=== PATIENT | male | born 1965 | race Caucasian/White ===

== ENCOUNTER 2019-01-03 14:17 | Observation (INO) ==
[2019-01-03] MEDS ORDERED: Isovue-370 500 ML BOTTLE IVP ONE (14:56)
--- NOTE | 2019-01-03 15:46 | Emergency Department Note ---
Disposition Clinical Impression: Cellulitis of neck Disposition: Admitted As Inpatient Condition: Fair Referrals: Sherrell Ragland CNP [Primary Care Provider] - Forms: ED Satisfaction Letter, Work/School Release Time of Disposition: 19:58 General Adult HPI - General Chief complaint: ED General Medical Stated complaint: Left side neck / throat swelling Time Seen by Provider: 01/03/19 14:42 Source: patient Limitations: no limitations Nursing Notes Reviewed: Yes Vital Signs Reviewed: Yes - History of Present Illness Pain Scale: 6 - Related Data Home Medications Medication Instructions Recorded Confirmed Albuterol Sulfate [Ventolin Hfa] 18 gm IH DAILY 01/03/19 01/03/19 Atorvastatin [Lipitor] 20 mg PO HS 01/03/19 01/03/19 DULoxetine [Cymbalta] 30 mg PO DAILY 01/03/19 01/03/19 Fluticasone Propionate [Flovent 12 gm IH DAILY 01/03/19 01/03/19 Hfa] Furosemide [Lasix] 40 mg PO DAILY 01/03/19 01/03/19 Levocetirizine Dihydrochloride 5 mg PO DAILY 01/03/19 01/03/19 [Allergy Relief (Xyzal)] Losartan Potassium [Cozaar] 100 mg PO DAILY 01/03/19 01/03/19 Metoprolol Tartrate 50 mg PO 1-2XD PRN 01/03/19 01/03/19 Naproxen [Naprosyn] 500 mg PO 1-2XD PRN 01/03/19 01/03/19 Sertraline [Zoloft] 50 mg PO DAILY 01/03/19 01/03/19 Tamsulosin HCl [Flomax] 0.4 mg PO DAILY 01/03/19 01/03/19 Tiotropium [Spiriva] 18 mcg IH DAILY 01/03/19 01/03/19 Tramadol HCl [Ultram] 50 mg PO QID PRN 01/03/19 01/03/19 Allergies Allergy/AdvReac Type Severity Reaction Status Date / Time No Known Allergies Allergy Verified 01/03/19 14:36 Past Medical History - Past Medical History Medical history: Reports: hyperlipidemia, hypertension, thyroid disease Psychiatric history: Reports: no psych history - Social History Smoking Status: Current every day smoker Smokeless Tobacco Status: No Alcohol use: Reports: none Drug use: Reports: none Physical Exam - General Limitations: no limitations General appearance: alert Course Vital Signs Temperature 97.7 F 01/03/19 14:24 Pulse Rate 87 01/03/19 14:24 Respiratory Rate 18 01/03/19 14:24 Blood Pressure 203/146 01/03/19 14:24 O2 Sat by Pulse Oximetry 96 01/03/19 14:24 Temperature 98.6 F 01/03/19 18:59 Pulse Rate 87 01/03/19 18:59 Respiratory Rate 18 01/03/19 18:59 Blood Pressure 186/127 01/03/19 18:59 O2 Sat by Pulse Oximetry 95 01/03/19 18:59 Oxygen Delivery Oxygen Delivery Room Air Medical Decision Making - Lab Data Result diagrams: 01/03/19 15:30 01/03/19 15:30 Lab Results 01/03/19 01/03/19 Range/Units 15:30 15:30 WBC 12.7 H (4.3-11.1) K/mcL RBC 4.92 (4.19-5.50) M/mcL Hgb 16.0 (12.9-16.9) g/dL Hct 45.7 (37.5-50.1) % MCV 92.9 (83.0-100.0) fL MCH 32.5 (28.0-33.3) pg MCHC 35.0 (31.6-35.5) g/dL RDW 13.1 (11.5-14.5) % Plt Count 246 (140-400) K/mcL MPV 10.7 (9.4-12.4) fL Immature Gran % 0.3 (0-4) % Seg Neutrophils % 59.1 % Lymphocytes % 32.6 % Monocytes % 6.0 % Eosinophils % 1.5 % Basophils % 0.5 % Neutrophils # 7.5 (1.6-8.9) K/mcL Lymphocytes # 4.1 (0.6-4.6) K/mcL Monocytes # 0.8 (0.0-1.3) K/mcL Eosinophils # 0.2 (0.0-0.6) K/mcL Basophils # 0.1 (0.0-0.2) K/mcL Sodium 139 (136-145) mEq/L Potassium 3.6 (3.5-5.1) mEq/L Chloride 107 (98-107) mEq/L Carbon Dioxide 26 (23-29) mEq/L BUN 12 (6-20) mg/dL Creatinine 0.90 (0.70-1.30) mg/dL Est GFR ( Amer) > 60 (> 60) Est GFR (Non-Af Amer) > 60 (> 60) BUN/Creatinine Ratio 13 (6-26) Glucose 97 (70-105) mg/dL Calculated Osmolality 288 (280-300) Calcium 8.9 (8.6-10.3) mg/dL Attestation Statement - Attestation Attestation: I examined this patient and my medical decision-making was reviewed with the Resident Physician. I agree with the documented findings, disposition and treatment plan as described except to the extent set forth below. Patient presents to the ED with his . He is a chief complaint of a 2 day history of swelling to the left side of the neck. Started after drinking some Powerade. Swells when he eats and goes down after he eats. Nonpainful. No fever. No vomiting. No chest pain. Denies injury. On examination he has some tenderness to the left submandibular area. Swelling noted. Plan. CT neck. CT reviewed. No abscess. No airway compromise. Starting IV antibiotic and admitting. Soft Tissue Neck CT 01/03/19 14:56 IMPRESSION: Left facial cellulitis. No abscess identified. D/ / Jony Davalos / Jony Davalos Interpreting Provider: Jony Davalos
--- NOTE | 2019-01-03 15:55 | Emergency Department Note ---
Disposition Clinical Impression: Cellulitis of neck Disposition: Admitted As Inpatient Condition: Fair Time of Disposition: 20:15 Neck Injury/Pain HPI - General Chief Complaint: ED General Medical Stated Complaint: Left side neck / throat swelling Time Seen by Provider: 01/03/19 14:42 Source: patient, family Mode of arrival: ambulatory Limitations: no limitations Nursing Notes Reviewed: Yes Vital Signs Reviewed: Yes - History of Present Illness HPI Narrative: 53-year-old male complaining of left-sided neck and face pain and swelling. Says it began approximately 3-4 days ago continually get worse. He says it will come and go with the swelling as well as the pain. Says it is worse whenever he eats and sure thereafter and then as time goes by the swelling decrease in the pain gets better. He has had no fevers or chills. He is had no difficulty in breathing. He has had his right side of his thyroid removed does take calcium but does not have to take Synthroid. Left-sided thyroid has been functioning well. Right side was removed due to possible worry about cancer it was negative for any cancerous cells. This is been done a few years ago there is been no problems since then. Otherwise patient has no other complaints. - Related Data Home Medications Medication Instructions Recorded Confirmed Albuterol Sulfate [Ventolin Hfa] 18 gm IH DAILY 01/03/19 01/03/19 Atorvastatin [Lipitor] 20 mg PO HS 01/03/19 01/03/19 DULoxetine [Cymbalta] 30 mg PO DAILY 01/03/19 01/03/19 Fluticasone Propionate [Flovent 12 gm IH DAILY 01/03/19 01/03/19 Hfa] Furosemide [Lasix] 40 mg PO DAILY 01/03/19 01/03/19 Levocetirizine Dihydrochloride 5 mg PO DAILY 01/03/19 01/03/19 [Allergy Relief (Xyzal)] Losartan Potassium [Cozaar] 100 mg PO DAILY 01/03/19 01/03/19 Metoprolol Tartrate 50 mg PO 1-2XD PRN 01/03/19 01/03/19 Naproxen [Naprosyn] 500 mg PO 1-2XD PRN 01/03/19 01/03/19 Sertraline [Zoloft] 50 mg PO DAILY 01/03/19 01/03/19 Tamsulosin HCl [Flomax] 0.4 mg PO DAILY 01/03/19 01/03/19 Tiotropium [Spiriva] 18 mcg IH DAILY 01/03/19 01/03/19 Tramadol HCl [Ultram] 50 mg PO QID PRN 01/03/19 01/03/19 Allergies Allergy/AdvReac Type Severity Reaction Status Date / Time No Known Allergies Allergy Verified 01/03/19 14:36 All systems ED: reviewed and negative except as stated. Review of Systems: As Per HPI Past Medical History - Past Medical History Attestation: Yes The following information was validated with the patient. Source: patient Medical history: Reports: hyperlipidemia, hypertension, thyroid disease Psychiatric history: Reports: no psych history - Social History Smoking Status: Current every day smoker Smokeless Tobacco Status: No Alcohol use: Reports: none Drug use: Reports: none Physical Exam - General Limitations: no limitations General appearance: alert - Head Head exam: atraumatic, normocephalic, normal inspection - Eye Eye exam: Present: normal appearance, PERRL, EOMI - ENT ENT exam: normal exam, normal oropharynx, mucous membranes moist, other (Left side of the neck is slightly swollen when you look at there is no erythema no noticeable fluctuance or abscesses are seen. The salivary gland on the left cheek from the parotid gland is still producing saliva. There is no noticeable pus or purulence coming out of it. He is tender to touch just below the mandible in the submandibular lymph node and gland region.) - Expanded ENT Exam Throat exam: Present: normal inspection. Absent: R peritonsillar mass, L peritonsillar mass - Neck Neck exam: Present: normal inspection, full ROM, trachea midline - Chest Chest inspection: Present: normal inspection, symmetric chest wall rise - Respiratory Respiratory exam: Present: normal lung sounds bilaterally - Cardiovascular Cardiovascular exam: Present: regular rate, normal rhythm, normal heart sounds - Abdominal Exam Abdominal exam: Present: soft, Non-Tender, normal bowel sounds. Absent: tenderness, distention, guarding, rebound, rigidity Course Course Narrative: We will get CT of the neck soft tissue with contrast to rule out any signs of infection or possible enlarged lymph nodes or other pathology. Patient cared this plan. Vital Signs Temperature 97.7 F 01/03/19 14:24 Pulse Rate 87 01/03/19 14:24 Respiratory Rate 18 01/03/19 14:24 Blood Pressure 203/146 01/03/19 14:24 O2 Sat by Pulse Oximetry 96 01/03/19 14:24 Temperature 98.6 F 01/03/19 18:59 Pulse Rate 87 01/03/19 18:59 Respiratory Rate 18 01/03/19 18:59 Blood Pressure 186/127 01/03/19 18:59 O2 Sat by Pulse Oximetry 95 01/03/19 18:59 Oxygen Delivery Oxygen Delivery Room Air Neck Pain - MDM Narrative Medical decision making narrative: 53 old male with left-sided neck and face swelling. CT showed facial cellulitis. There is no signs of Jb angina no signs of peritonsillar abscess or retropharyngeal abscess. Patient had an open. Being airway there is no respiratory distress. Patient did have elevated white blood cell count with a left shift due to this I felt patient needed to be admitted with starting of an he biotics IV. I did start him on clindamycin. I spoke with the hospitals Dr. Saunders who agreed to admit the patient to their service. Patient is admitted in stable condition. Soft Tissue Neck CT 01/03/19 14:56 IMPRESSION: Left facial cellulitis. No abscess identified. D/ / Jony Davalos / Jony Davalos Interpreting Provider: Jony Davalos - Lab Data Result diagrams: 01/03/19 15:30 01/03/19 15:30 Lab Results 01/03/19 01/03/19 Range/Units 15:30 15:30 WBC 12.7 H (4.3-11.1) K/mcL RBC 4.92 (4.19-5.50) M/mcL Hgb 16.0 (12.9-16.9) g/dL Hct 45.7 (37.5-50.1) % MCV 92.9 (83.0-100.0) fL MCH 32.5 (28.0-33.3) pg MCHC 35.0 (31.6-35.5) g/dL RDW 13.1 (11.5-14.5) % Plt Count 246 (140-400) K/mcL MPV 10.7 (9.4-12.4) fL Immature Gran % 0.3 (0-4) % Seg Neutrophils % 59.1 % Lymphocytes % 32.6 % Monocytes % 6.0 % Eosinophils % 1.5 % Basophils % 0.5 % Neutrophils # 7.5 (1.6-8.9) K/mcL Lymphocytes # 4.1 (0.6-4.6) K/mcL Monocytes # 0.8 (0.0-1.3) K/mcL Eosinophils # 0.2 (0.0-0.6) K/mcL Basophils # 0.1 (0.0-0.2) K/mcL Sodium 139 (136-145) mEq/L Potassium 3.6 (3.5-5.1) mEq/L Chloride 107 (98-107) mEq/L Carbon Dioxide 26 (23-29) mEq/L BUN 12 (6-20) mg/dL Creatinine 0.90 (0.70-1.30) mg/dL Est GFR ( Amer) > 60 (> 60) Est GFR (Non-Af Amer) > 60 (> 60) BUN/Creatinine Ratio 13 (6-26) Glucose 97 (70-105) mg/dL Calculated Osmolality 288 (280-300) Calcium 8.9 (8.6-10.3) mg/dL
[2019-01-03 16:09] LABS: BUN/Creatinine Ratio 13 (6-26); Blood Urea Nitrogen 12 mg/dL (6-20); Calcium 8.9 mg/dL (8.6-10.3); Carbon Dioxide 26 mEq/L (23-29); Chloride 107 mEq/L (98-107); Glucose 97 mg/dL (70-105); Osmolality,Calculated 288 (280-300); Potassium 3.6 mEq/L (3.5-5.1); Sodium 139 mEq/L (136-145); eGFR For Non-African Americans > 60 (> 60)
[2019-01-03] MEDS ORDERED: *HR* LORazepam 2 MG/ML VIAL IVP ONE (16:20)
[2019-01-03] MEDS ORDERED: Clindamycin 600 MG/50 ML 600 MG/50 ML IV.SOLN IVPB STA (18:09)
[2019-01-03 18:29] LABS: Basophils # 0.1 K/mcL (0.0-0.2); Basophils % 0.5 %; Eosinophils # 0.2 K/mcL (0.0-0.6); Eosinophils % 1.5 %; Hematocrit 45.7 % (37.5-50.1); Immature Granulocytes % 0.3 % (0-4); Lymphocytes # 4.1 K/mcL (0.6-4.6); Lymphocytes % 32.6 %; Mean Corpuscular Hemoglobin 32.5 pg (28.0-33.3); Mean Corpuscular Volume 92.9 fL (83.0-100.0); Mean Platelet Volume 10.7 fL (9.4-12.4); Monocytes # 0.8 K/mcL (0.0-1.3); Neutrophils # 7.5 K/mcL (1.6-8.9); Platelet Count 246 K/mcL (140-400); Red Blood Count 4.92 M/mcL (4.19-5.50); Red Cell Distribution Width 13.1 % (11.5-14.5); Segmented Neutrophils % 59.1 %
[2019-01-03] MEDS ORDERED: Naloxone 0.4 MG/ML INJ IVP PRN (22:02)
[2019-01-03] MEDS ORDERED: Acetaminophen 325 MG TABLET PO PRN (22:02)
--- NOTE | 2019-01-03 22:09 | Internal Med History&Physical ---
Date of Encounter: 01/03/19 Time of Encounter: 20:46 Internal Medicine - H&P: HPI Chief complaint: Left face cellulitis Admitted From: Emergency Dept Plans for Post Hospital Care: Home History of present illness: Mr. Jones is a 53 year old male Patient presented to the emergency room with 3-4 day history of facial pain and swelling on the left side. He says that when it first started it swelled to the size of an egg, but then improved. The pain gradually came back and he started having some pain with eating and drinking. He has not had any difficulty breathing and denied fevers and chills. He does have a history of right-sided thyroid removal. He had a similar swelling episode a few months ago but it went away on its own. In the emergency room patient's: Temperature 97.7, pulse 87, respiratory 18 blood pressure 203/146 O2 saturation 96% on room air. CBC revealed a white count of 12.7, but otherwise within normal limits BMP had no abnormalities. A soft tissue neck with contrast was performed that showed left facial cellulitis, no abscess identified. The pharynx and larynx had normal appearance, no masses or abscesses seen. Blood cultures were not drawn prior to the initiation of antibiotics. He was given clindamycin and admitted to the hospital floor for further observation. Upon my evaluation, patient is resting comfortably in the hospital bed in no acute distress. He denies chest pain, abdominal pain, diarrhea and constipation. He has had some nausea but denies vomiting. He denies shortness of breath and difficulty breathing. He is currently not having any pain with swallowing. He denies significant family history. He is a full code. Past Med Surg Social Fam HX - Past Medical History Medical history: hyperlipidemia, hypertension, thyroid disease Psychiatric history: no psych history - Social History Smoking Status: Current every day smoker Smokeless Tobacco Status: No Alcohol use: none Drug use: none Internal Medicine - H&P: Meds Albuterol Sulfate [Ventolin Hfa] 18 gm IH DAILY 01/03/19 [History] Atorvastatin [Lipitor] 20 mg PO HS 01/03/19 [History] DULoxetine [Cymbalta] 30 mg PO DAILY 01/03/19 [History] Fluticasone Propionate [Flovent Hfa] 12 gm IH DAILY 01/03/19 [History] Furosemide [Lasix] 40 mg PO DAILY 01/03/19 [History] Levocetirizine Dihydrochloride [Allergy Relief (Xyzal)] 5 mg PO DAILY 01/03/19 [History] Losartan Potassium [Cozaar] 100 mg PO DAILY 01/03/19 [History] Metoprolol Tartrate 50 mg PO 1-2XD PRN 01/03/19 [History] Naproxen [Naprosyn] 500 mg PO 1-2XD PRN 01/03/19 [History] Sertraline [Zoloft] 50 mg PO DAILY 01/03/19 [History] Tamsulosin HCl [Flomax] 0.4 mg PO DAILY 01/03/19 [History] Tiotropium [Spiriva] 18 mcg IH DAILY 01/03/19 [History] Tramadol HCl [Ultram] 50 mg PO QID PRN 01/03/19 [History] Allergy/AdvReac Type Severity Reaction Status Date / Time No Known Allergies Allergy Verified 01/03/19 14:36 All Systems PM: A 10-system review of systems was performed and is negative for pertinent findings except as documented above in the HPI. - Constitutional Vitals: Temp Pulse Resp BP Pulse Ox 97.8 F 97 16 151/104 95 01/03/19 21:54 01/03/19 21:54 01/03/19 21:54 01/03/19 21:54 01/03/19 21:54 General appearance: Present: cooperative, A&O X 3, pleasant, no acute distress, answers questions appropriately Exam: - - Head Head exam: Present: normal inspection - Eye Eye exam: Present: EOMI, normal appearance - Respiratory Respiratory exam: Present: CTAB. Absent: rales, respiratory distress, rhonchi, stridor, wheezes - Cardiovascular Cardiovascular exam: Present: RRR. Absent: diastolic murmur, systolic murmur - GI/Abdominal GI/Abdominal exam: Present: normal bowel sounds, soft. Absent: tenderness - Extremities Exam Extremities exam: Present: warm, radial pulses palpable and symmetrical. Absent: calf tenderness, pedal edema, tenderness - Neurological Exam Neurological exam: Present: no focal deficits, strengths equal and symetr throughout. Absent: motor sensory deficit, facial droop, speech deficit - Skin Skin exam: Present: dry, normal color, warm Additional comments: Slight redness to the left neck and jawline, with irritation likely secondary to shaving. Nontender to palpation, no palpable masses felt. No vesicular lesions indicating shingles. Internal Med - H&P Results - Labs CBC & Chem 7: 01/03/19 15:30 01/03/19 15:30 Labs: Short CBC 01/03/19 Range/Units 15:30 WBC 12.7 H (4.3-11.1) K/mcL Hgb 16.0 (12.9-16.9) g/dL Hct 45.7 (37.5-50.1) % Plt Count 246 (140-400) K/mcL Neutrophils # 7.5 (1.6-8.9) K/mcL BMP 01/03/19 15:30 Sodium 139 Potassium 3.6 Chloride 107 Carbon Dioxide 26 BUN 12 Creatinine 0.90 Glucose 97 Calcium 8.9 - Impressions ITS Impressions Soft Tissue Neck CT 01/03/19 14:56 IMPRESSION: Left facial cellulitis. No abscess identified. D/ / Jony Davalos / Jony Davalos Interpreting Provider: Jony Davalos - Assessment and Plan (1) Cellulitis of neck Current Visit: Yes Status: Acute Assessment and plan: Patient has slight redness to the left side of the neck. Not tender to palpat ion, no palpable masses felt on exam. Does appear to be related to shaving as the skin looked like it was irritated. CT of the head and neck showed cellulitis with no abscess. He was started on clindamycin in the emergency room. Continue clindamycin Monitor for worsening signs of infection Bedside pulse oximeter Oxygen supplementation as needed Monitor for signs of difficulty swallowing or breathing ENT consult if concern for airway compromise occurs. (2) Hypertensive urgency Current Visit: Yes Status: Acute Assessment and plan: Patient's initial blood pressure in the emergency room was significantly elevated. I requested the ER give the patient 10 mg IV hydralazine and it seems to have improved to 151/104. He does take blood pressure medicines at home, and recently had a blood pressure medicine changes by his primary care doctor. Continue IV hydralazine 10 mg every 6 hours as needed Continue home blood pressure medications (3) DVT prophylaxis Current Visit: Yes Status: Acute Assessment and plan: Subcutaneous heparin - Time Spent With Patient Total time spent is greater than 50% in coordination of care (as documented) at patient's floor/unit and/or counseling patient: Greater than 35 minutes
[2019-01-03] MEDS: *HR* OxyCODONE Immed Rel 5 MG TABLET PO PRN (22:24)
[2019-01-04] MEDS: Clindamycin 600 MG/50 ML 600 MG/50 ML IV.SOLN IVPB SCH ×3 (03:09→19:08)
[2019-01-04] MEDS: *HR* Heparin 5,000 UNIT/ML VIAL SQ SCH ×2 (04:29→19:08)
[2019-01-04] MEDS: *HR* OxyCODONE Immed Rel 5 MG TABLET PO PRN ×2 (04:30→19:46)
[2019-01-04 04:45] LABS: Hematocrit 43.8 % (37.5-50.1); Hemoglobin 14.5 g/dL (12.9-16.9); Mean Corpuscular HGB Conc 33.1 g/dL (31.6-35.5); Mean Corpuscular Hemoglobin 31.1 pg (28.0-33.3); Mean Platelet Volume 10.2 fL (9.4-12.4); Platelet Count 217 K/mcL (140-400); Red Blood Count 4.66 M/mcL (4.19-5.50); Red Cell Distribution Width 13.2 % (11.5-14.5)
[2019-01-04 05:03] LABS: BUN/Creatinine Ratio 15 (6-26); Blood Urea Nitrogen 17 mg/dL (6-20); Carbon Dioxide 25 mEq/L (23-29); Chloride 105 mEq/L (98-107); Glucose 143 mg/dL (70-105); Osmolality,Calculated 286 (280-300); Potassium 3.5 mEq/L (3.5-5.1); Sodium 136 mEq/L (136-145); eGFR For Non-African Americans > 60 (> 60)
[2019-01-04] MEDS: Furosemide 40 MG TABLET PO SCH (08:00)
[2019-01-04] MEDS ORDERED: Ondansetron 4 MG/2 ML VIAL IVP PRN (10:27)
[2019-01-04] MEDS: *HR* HYDROcodone/Acet 5/325 mg TABLET PO PRN (12:23)
--- NOTE | 2019-01-04 12:45 | Internal Med Progress Note ---
Hospitalist Progress Note - Encounter Date of Encounter: 01/04/19 Time of Encounter: 09:15 - Subjective Interval History: Patient feels much better today. His swelling and pain in the left lower face and neck has improved. Patient states that she developed swelling and pain in this region which got worse every time he ate something. However since he was admitted overnight, his symptoms have improved now and is tolerating oral diet without any pain today. Denies any trouble swallowing food. No fever reported this morning. - Exam Vitals: Temp Pulse Resp BP Pulse Ox 97.9 F 83 17 163/111 94 01/04/19 11:00 01/04/19 11:00 01/04/19 11:00 01/04/19 11:00 01/04/19 11:00 Exam: General: Patient is alert, no acute distress, oriented x 3 ENT: Mucous membranes moist; no erythema noted on face today. Mildly tender to deep palpation in the lower submandibular region. Respiratory: Good respiratory effort. Normal breath sounds. No wheezing or crackles. Cardiovascular: Regular rate and rhythm. s1 and s2 normal No clicks, rubs, gallops, or murmurs. No pedal edema Abdomen: Abdomen is soft, nontender. Bowel sounds are present Musculoskeletal: Spontaneously moving all extremities Skin: warm, dry, intact. Neuro: Alert oriented x 3 normal cranial nerves, no focal deficits - Assessment and Plan (1) Sialadenitis Current Visit: Yes Status: Acute (2) Cellulitis of neck Current Visit: Yes Status: Ruled-out (3) Hypertensive urgency Current Visit: Yes Status: Acute (4) DVT prophylaxis Current Visit: Yes Status: Acute - Summary of Assessment and Plan Summary of Assessment and Plan: I strongly suspect that the patient either had sialadenitis or salivary ductal stone which caused his symptoms. It seems to be improving already and patient is tolerating diet without any pain. Will continue clindamycin. His blood pressure remains elevated but better controlled compared to yesterday. We will resume metoprolol [address] him on a scheduled dose twice daily. Continue to monitor blood pressure. Patient does have consistent leukocytosis. Will recheck tomorrow. - Time Spent with Patient Total time spent is greater than 50% in coordination of care (as documented) at patient's floor/unit and/or counseling patient: Internal Medicine: Result - Labs CBC & Chem 7: 01/04/19 04:14 01/04/19 04:14 Labs: Short CBC 01/03/19 01/04/19 Range/Units 15:30 04:14 WBC 12.7 H 13.8 H (4.3-11.1) K/mcL Hgb 16.0 14.5 D (12.9-16.9) g/dL Hct 45.7 43.8 (37.5-50.1) % Plt Count 246 217 (140-400) K/mcL Neutrophils # 7.5 (1.6-8.9) K/mcL BMP 01/03/19 01/04/19 15:30 04:14 Sodium 139 136 Potassium 3.6 3.5 Chloride 107 105 Carbon Dioxide 26 25 BUN 12 17 Creatinine 0.90 1.16 Glucose 97 143 H Calcium 8.9 8.0 L - Impressions Impressions Soft Tissue Neck CT 01/03/19 14:56 IMPRESSION: Left facial cellulitis. No abscess identified. D/ / Jony Davalos / Jony Davalos Interpreting Provider: Jony Davalos Consult Discharge Plan - Plan Referrals: Sherrell Ragland, CUSTOMER ACCOUNT MANAGER [Primary Care Provider] -
[2019-01-04] MEDS ORDERED: *HR* Promethazine 25 MG/ML VIAL IVP PRN (18:14)
[2019-01-04] MEDS: Acetaminophen/Butalbital/CaffeineTABLET PO PRN (18:56)
[2019-01-05] MEDS: Acetaminophen/Butalbital/CaffeineTABLET PO PRN ×2 (00:06→09:26)
[2019-01-05] MEDS: Clindamycin 600 MG/50 ML 600 MG/50 ML IV.SOLN IVPB SCH ×2 (03:14→12:25)
[2019-01-05 04:55] LABS: Basophils % 0.3 %; Eosinophils # 0.3 K/mcL (0.0-0.6); Eosinophils % 1.9 %; Hematocrit 46.1 % (37.5-50.1); Hemoglobin 15.4 g/dL (12.9-16.9); Immature Granulocytes % 0.4 % (0-4); Lymphocytes # 5.2 K/mcL (0.6-4.6); Lymphocytes % 36.7 %; Mean Corpuscular HGB Conc 33.4 g/dL (31.6-35.5); Mean Corpuscular Hemoglobin 31.6 pg (28.0-33.3); Mean Corpuscular Volume 94.5 fL (83.0-100.0); Mean Platelet Volume 10.8 fL (9.4-12.4); Monocytes # 0.9 K/mcL (0.0-1.3); Monocytes % 6.3 %; Neutrophils # 7.7 K/mcL (1.6-8.9); Platelet Count 214 K/mcL (140-400); Red Blood Count 4.88 M/mcL (4.19-5.50); Red Cell Distribution Width 13.8 % (11.5-14.5); Segmented Neutrophils % 54.4 %
[2019-01-05] MEDS: *HR* Heparin 5,000 UNIT/ML VIAL SQ SCH (05:46)
--- NOTE | 2019-01-05 08:51 | ENT - Consult Note ---
<Luisa Nava - Last Filed: 01/05/19 16:37> Date of Encounter: 01/05/19 Time of Encounter: 08:48 Assessment and Plan (1) Cellulitis of neck Status: Ruled-out Seen and examined this a.m. Patient is currently asymptomatic. Reports Significant improvement in symptoms of neck and jaw swelling since admission. He denies any symptoms of swelling associated with eating since starting antibiotics and admission to hospital. Would recommend continued oral antibioti cs at discharge. Clindamycin or augmentin would be appropriate options. Underlying Etiology likely odontological in nature, patient with severe teeth decay of lower molars affected side. Given patient's reported symptoms of dry mouth, decreased saliva production, pain and swelling with eating, differential of sialadenitis would not be excluded. Saliva expressed from parotid and SMG today upon examination. No purulent drainage. Would recommend increased oral hydration, salivary massage, and sialagogues such as sour candy, lemon slices, etc. CT imaging was reviewed which demonstrated enlarged submandibular salivary glands, however no stones, or other significant abnormalities were identified. (2) Dental decay Status: Acute Recommend follow up with dentist at discharge, this was discussed at length with patient. (3) Acute sinusitis Status: Acute CT imaging demonstrates findings consistent with acute sinusitis; maxillary and ethmoid sinuses, which could be a contributing factor to patient's elevated white blood cell count. Recommend continued Oral antibiotics at discharge. Qualifiers: Sinusitis location: pansinusitis Recurrence: not specified as recurrent Qualified Code(s): J01.40 - Acute pansinusitis, unspecified History of Present Illness Consult date: 01/05/19 Reason for ENT Consult: other Comment: left neck swelling/cellulitis Requesting physician: Colton Osman History of present illness: Mr. Jones is a 53 year old male with past medical history of hyperlipidemia, hypertension, thyroid disease-status post right thyroid lobectomy/parathyroidectomy. Patient presented to the emergency room with 3-4 day history of left facial/jaw pain and upper left neck swelling. He states area initially swelled to the size of an egg, with slight improvement prior to being seen at the hospital. Patient reports pain present when trying to eat or drink, with decreased saliva production, and difficulty opening his jaw widely. patient denies any pain with eating or drinking since starting antibiotics at admission. Patient reports only one similar prior episode possibly 2-3 months ago that occurred after eating and spontaneously resolved. No reported swelling or edema of neck or jaw today. CT scan obtained on 01/03/19 demonstrated Left facial cellulitis, with No abscess identified, unremarkable parotid and submandibular glands. Patient has been on IV clindamycin since admission approximately 2 days ago. ENT was consulted due to persistent elevated white blood cell count. Past Med Surg Social Fam HX - Past Medical History Medical history: arthritis, COPD, hyperlipidemia, hypertension, thyroid disease Psychiatric history: anxiety, depression - Past Surgical History Additional surgical history: right neck surgery 2014 - Social History Smoking Status: Current every day smoker Smokeless Tobacco Status: No Alcohol use: none Drug use: none Medications and Allergies Albuterol Sulfate [Ventolin Hfa] 2 puff IH Q6H 01/03/19 [History] Atorvastatin [Lipitor] 20 mg PO HS 01/03/19 [History] DULoxetine [Cymbalta] 30 mg PO DAILY 01/03/19 [History] Fluticasone Propionate [Flovent Hfa] 2 puff IH DAILY 01/03/19 [History] Furosemide [Lasix] 40 mg PO DAILY 01/03/19 [History] Levocetirizine Dihydrochloride [Allergy Relief (Xyzal)] 5 mg PO DAILY 01/03/19 [History] Losartan Potassium [Cozaar] 100 mg PO DAILY 01/03/19 [History] Naproxen [Naprosyn] 500 mg PO BID PRN 01/03/19 [History] Sertraline [Zoloft] 50 mg PO DAILY 01/03/19 [History] Tamsulosin HCl [Flomax] 0.4 mg PO DAILY 01/03/19 [History] Tiotropium [Spiriva] 2 puff IH DAILY 01/03/19 [History] Tramadol HCl [Ultram] 50 mg PO QID PRN 01/03/19 [History] Amoxicillin/Clavulanate [Augmentin] 875 mg PO BIDWM #20 tablet 01/05/19 [Rx] Lactobacillus Acidophilus [Acidophilus] 1 each PO BID #20 tablet 01/05/19 [Rx] Metoprolol [Lopressor] 50 mg PO BID #60 tablet 01/05/19 [Rx] OxyCODONE Immed Rel [Roxicodone 5 MG] 5 mg PO Q6HR PRN 5 Days #20 tablet 01/05/19 [Rx] Allergy/AdvReac Type Severity Reaction Status Date / Time No Known Allergies Allergy Verified 01/03/19 14:36 ENT - ROS - EENT Nose, mouth and throat: other (left neck swelling) ENT Exam Initial Vital Signs Temp Pulse Resp BP Pulse Ox 97.7 F 87 18 203/146 96 01/03/19 14:24 01/03/19 14:24 01/03/19 14:24 01/03/19 14:24 01/03/19 14:24 - General physical appearance well developed, well nourished, no distress, no pain - Eyes PERRL, normal ocular movement - ENT normal pinna, normal nares, CN 2-12 grossly intact, Other (EARS: EAC's clear bilaterally, TM's normal bilateral. NOSE: nares patent bilaterally, inferior tur b normal bilaterally. ORAL: mucosa dry, gingivitis noted to lower gum line, dentition with severe decay, lower left back molars. Uvula midline, tongue midline, tonsils 1+ bilaterally. Saliva expressed from [place] and Stensen's ducts bilaterally, clear with no purulent drainage. ) - Neck trachea midline, no lymphadectomy, other (No edema, erythema, or tenderness reported with palpation) - Respiratory normal expansion, normal respiratory effort - Neurologic CN 2-12 grossly intact, normal coordination, normal sensation - Musculoskeletal normal gait, normal posture - Psychiatric oriented to time, oriented to person, oriented to place Exam Initial Vital Signs Temp Pulse Resp BP Pulse Ox 97.7 F 87 18 203/146 96 01/03/19 14:24 01/03/19 14:24 01/03/19 14:24 01/03/19 14:24 01/03/19 14:24 Results - Labs 01/05/19 04:27 01/04/19 04:14 Abnormal lab results WBC 14.1 K/mcL (4.3-11.1) H 01/05/19 04:27 5.2 K/mcL (0.6-4.6) H 01/05/19 04:27 Glucose 143 mg/dL (70-105) H 01/04/19 04:14 Calcium 8.0 mg/dL (8.6-10.3) L 01/04/19 04:14 All other labs normal. Consult Discharge Plan - Plan Instructions: Hypertensive Crisis (DC) Referrals: Sherrell Ragland CNP [Primary Care Provider] - 01/19/19 1:40 pm (in 1-2 weeks) Prescriptions: Lactobacillus Acidophilus [Acidophilus] 1 each PO BID #20 tablet Amoxicillin/Clavulanate [Augmentin] 875 mg PO BIDWM #20 tablet Metoprolol [Lopressor] 50 mg PO BID #60 tablet OxyCODONE Immed Rel [Roxicodone 5 MG] 5 mg PO Q6HR PRN 5 Days #20 tablet PRN Reason: Severe Pain <Mica Moss - Last Filed: 01/06/19 15:32> Date of Encounter: 01/06/19 Assessment and Plan (1) Cellulitis of neck Status: Ruled-out (2) Dental decay Status: Acute (3) Acute sinusitis Status: Acute Qualifiers: Sinusitis location: pansinusitis Recurrence: not specified as recurrent Qualified Code(s): J01.40 - Acute pansinusitis, unspecified ENT Exam Initial Vital Signs Temp Pulse Resp BP Pulse Ox 97.7 F 87 18 203/146 96 01/03/19 14:24 01/03/19 14:24 01/03/19 14:24 01/03/19 14:24 01/03/19 14:24 Exam Initial Vital Signs Temp Pulse Resp BP Pulse Ox 97.7 F 87 18 203/146 96 01/03/19 14:24 01/03/19 14:24 01/03/19 14:24 01/03/19 14:24 01/03/19 14:24 Results - Labs 01/05/19 04:27 01/04/19 04:14 Abnormal lab results WBC 14.1 K/mcL (4.3-11.1) H 01/05/19 04:27 5.2 K/mcL (0.6-4.6) H 01/05/19 04:27 Glucose 143 mg/dL (70-105) H 01/04/19 04:14 6.6 % (-5.6) H 01/05/19 04:27 Calcium 8.0 mg/dL (8.6-10.3) L 01/04/19 04:14 All other labs normal. - Attending Attestation Patient was seen and examined by the nurse practitioner. Although I did discuss her findings and also reviewed CT scan of the neck with the nurse practitioner patient was discharged home prior to my actual physical examination of the patient.
[2019-01-05] MEDS: Furosemide 40 MG TABLET PO SCH (09:31)
[2019-01-05] MEDS: *HR* HYDROcodone/Acet 5/325 mg TABLET PO PRN ×2 (09:36→16:23)
[2019-01-05 09:50] LABS: Estimated Average Glucose 143 mg/dl; Hemoglobin A1C 6.6 %
[2019-01-05] MEDS: *HR* OxyCODONE Immed Rel 5 MG TABLET PO PRN (12:25)
[2019-01-05 13:52] VITALS: BP 127/82
--- NOTE | 2019-01-05 15:32 | Discharge Summary ---
- NOTES TO OUTPATIENT PROVIDER Notes to Outpatient Provider: Patient was hospitalized here with left-sided lower facial cellulitis/swelling. Treated with antibiotics intravenously. He also had hypertensive urgency on presentation. Most likely exacerbated but pain. He does report difficulty controlled hypertension. Would recommend referral to hypertension specialist to help manage his blood pressure. Presently he will be discharged home on oral antibiotics. He is to return to the ER if his symptoms do not improve. He would also benefit from urgent referral to dentist or oral surgeon regarding his poor dentition in this location. Date of Encounter: 01/05/19 Time of Encounter: 15:30 - Discharge Diagnosis (1) Cellulitis of neck Priority: Primary Status: Ruled-out (2) Sialadenitis Priority: Secondary Status: Suspected (3) Hypertensive urgency Priority: Secondary Status: Resolved (4) DVT prophylaxis Priority: Secondary Status: Acute (5) Essential hypertension Priority: Secondary Status: Acute (6) Acute sinusitis Priority: Secondary Status: Acute Qualifiers: Sinusitis location: pansinusitis Recurrence: not specified as recurrent Qualified Code(s): J01.40 - Acute pansinusitis, unspecified (7) Dental decay Priority: Secondary Status: Acute Hospital course: Mr. Jones is a 53 year old male Patient with a history of essential hypertension was hospitalized here with left-sided lower facial cellulitis/swelling. Treated with antibiotics intravenously. He also had hypertensive urgency on presentation. Most likely exacerbated but pain. He does report difficulty controlled hypertension. Would recommend referral to hypertension specialist to help manage his blood pressure. I also recommend that he take metoprolol 50 mg twice daily on a scheduled basis. His current medication list stated that he takes it as needed. He will be discharged home on oral antibiotics. He is to return to the ER if his symptoms do not improve. He would also benefit from urgent referral to dentist or oral surgeon regarding his poor dentition in this location. Discharge discussed with: patient, family, nurse - Time Spent with Patient Total time spent providing and/or coordinating discharge services: Time spent: Greater than 30 minutes (40 min) - Discharge Medications Prescriptions: New Lactobacillus Acidophilus [Acidophilus] 1 each PO BID #20 tablet Amoxicillin/Clavulanate [Augmentin] 875 mg PO BIDWM #20 tablet Metoprolol [Lopressor] 50 mg PO BID #60 tablet OxyCODONE Immed Rel [Roxicodone 5 MG] 5 mg PO Q6HR PRN 5 Days #20 tablet PRN Reason: Severe Pain Continued Sertraline [Zoloft] 50 mg PO DAILY DULoxetine [Cymbalta] 30 mg PO DAILY Tramadol HCl [Ultram] 50 mg PO QID PRN PRN Reason: Analgesia Atorvastatin [Lipitor] 20 mg PO HS Losartan Potassium [Cozaar] 100 mg PO DAILY Tiotropium [Spiriva] 18 mcg IH DAILY Tamsulosin HCl [Flomax] 0.4 mg PO DAILY Naproxen [Naprosyn] 500 mg PO 1-2XD PRN PRN Reason: Pain Levocetirizine Dihydrochloride [Allergy Relief (Xyzal)] 5 mg PO DAILY Furosemide [Lasix] 40 mg PO DAILY Fluticasone Propionate [Flovent Hfa] 2 puff IH DAILY Albuterol Sulfate [Ventolin Hfa] 18 gm IH DAILY Discontinued Metoprolol Tartrate 50 mg PO 1-2XD PRN PRN Reason: Pain Home Medications: Albuterol Sulfate [Ventolin Hfa] 18 gm IH DAILY 01/03/19 [History] Atorvastatin [Lipitor] 20 mg PO HS 01/03/19 [History] DULoxetine [Cymbalta] 30 mg PO DAILY 01/03/19 [History] Fluticasone Propionate [Flovent Hfa] 2 puff IH DAILY 01/03/19 [History] Furosemide [Lasix] 40 mg PO DAILY 01/03/19 [History] Levocetirizine Dihydrochloride [Allergy Relief (Xyzal)] 5 mg PO DAILY 01/03/19 [History] Losartan Potassium [Cozaar] 100 mg PO DAILY 01/03/19 [History] Naproxen [Naprosyn] 500 mg PO 1-2XD PRN 01/03/19 [History] Sertraline [Zoloft] 50 mg PO DAILY 01/03/19 [History] Tamsulosin HCl [Flomax] 0.4 mg PO DAILY 01/03/19 [History] Tiotropium [Spiriva] 18 mcg IH DAILY 01/03/19 [History] Tramadol HCl [Ultram] 50 mg PO QID PRN 01/03/19 [History] Amoxicillin/Clavulanate [Augmentin] 875 mg PO BIDWM #20 tablet 01/05/19 [Rx] Lactobacillus Acidophilus [Acidophilus] 1 each PO BID #20 tablet 01/05/19 [Rx] Metoprolol [Lopressor] 50 mg PO BID #60 tablet 01/05/19 [Rx] OxyCODONE Immed Rel [Roxicodone 5 MG] 5 mg PO Q6HR PRN 5 Days #20 tablet 01/05/19 [Rx] Allergies/Adverse Reactions: Allergy/AdvReac Type Severity Reaction Status Date / Time No Known Allergies Allergy Verified 01/03/19 14:36 Date of admission: 01/03/19 20:12 Primary care physician: Sherrell Ragland CNP Consults: 01/05/19 08:07 Consult to ENT [CONS] Routine Consulting Provider: [facility] Reason for Consult: Left facial cellulitis/ ? Sialadenitis Time Notified: 08:08 Call Completed: Yes Discharging clinician: Colton Osman Anticipated date of discharge: 01/05/19 - Constitutional Vitals: Temp Pulse Resp BP Pulse Ox 97.5 F L 78 15 127/82 92 01/05/19 13:51 01/05/19 13:51 01/05/19 13:51 01/05/19 13:51 01/05/19 13:51 General appearance: Present: cooperative, A&O X 3, pleasant, no acute distress, answers questions appropriately Exam: General: Patient is alert, no acute distress, oriented x 3 ENT: mild swelling palpable over the left mandibular region. non tender Respiratory: Good respiratory effort. Normal breath sounds. No wheezing or crackles. Cardiovascular: Regular rate and rhythm. s1 and s2 normal No clicks, rubs, gallops, or murmurs. No pedal edema Abdomen: Abdomen is soft, nontender. Bowel sounds are present Musculoskeletal: Spontaneously moving all extremities Skin: warm, dry, intact. Neuro: Alert oriented x 3 normal cranial nerves, no focal deficits - Patient Status Disposition: Home, Self-Care Condition: Good Functional capacity at discharge: independent ambulation Overall status at discharge: patient is progressing back to baseline - Discharge Instructions Instructions: Hypertensive Crisis (DC) Follow Up With: Sherrell Ragland CNP [Primary Care Provider] - (in 1-2 weeks) - Diet and Activity Activity: increase activity as tolerated Diet: advance to your usual diet
== END 2019-01-05 17:02 | disposition home or self-care (01) ==
LOC: 3ANU 14:17 → EMEROOARM 14:17 → SUATTDRO 20:12 → 3ANU 20:24
PROVIDERS: ADMIT Family Medicine; ATTEND Internal Medicine